=== PATIENT | male | born 1970 | race African-American/Black ===

== ENCOUNTER 2024-02-12 09:16 | Outpatient (CLI) | payer OTHER, SELFPAY ==
--- NOTE | ~2024-02-12 | MR_ITS ---
EXAMINATION: MR knee RT wo con DATE: 02/12/2024 09:49 INDICATION: Right knee pain TECHNIQUE: Magnetic resonance imaging (MRI) of the right knee was performed without intravenous contr ast. Sequences included coronal PD-weighted FSE, coronal PD-weighted FS FSE, sagittal T2-weighted FS E, sagittal PD-weighted FS FSE and axial PD weighted fat saturated FSE. COMPARISON: None. FINDINGS: Osseous/other: 3-4 mm proximal distraction of the avulsion fracture involving the mid to posterior intercondylar edgar nence which extends to involve a small portion of the articular surface at the posterior medial aspec t of the lateral tibial plateau. The fracture fragment includes the footplate of the posterior crucia te ligament as well as the posterior roots of both the medial and lateral menisci. The fracture appea rs to spare the majority if not all of the tibial footplate of the anterior cruciate ligament. No sig nificant associated marrow edema suggesting this is subacute to chronic. There are relatively smooth low signal intensity margins of the fracture which raises concern for nonunion although assessment is more limited than with CT. Normal variant bipartite patella with mild edema and cystic change along the synchondrosis between the patella and the small superolateral accessory apophyseal center. There is a cleft in the articular cartilage overlying the synchondrosis. No pathologic marrow replacing pro cess. Medial compartment: Medial extrusion of the medial meniscal body. Complex tear of the medial meniscus which includes a lo ngitudinal vertical tear plane at the posterior horn and a horizontal tear plane at the meniscal body . There is a small meniscal flap displaced cephalad into the recess along side the anterior weightbea ring medial femoral condyle. The posterior horn appears small suggesting some loss of meniscal tissue . There is partial thickness cartilage loss with mild underlying subarticular edema-like signal mireles e at the posterolateral aspect of the medial tibial plateau. Full-thickness chondral tear overlying t he fracture plane which extends along the articular surface of the medial side of the intercondylar e minence. Additional mild partial-thickness cartilage loss with smooth chondral surface along the ante rior weightbearing medial femoral condyle. Lateral compartment: Lateral meniscus is normal. Articular cartilage is normal aside from the full-thickness tear overlyin g the fracture plane. Patellofemoral compartment: Patellar cartilage is normal aside from the cleft overlying the synchondrosis as previously detailed. There mild chondral surface irregularity along the trochlear groove. Ligaments and tendons: Anterior cruciate ligament appears normal. There is mild increased intrasubstance signal at the dista l aspect of the posterior cruciate ligament which could be seen with partial tear versus magic angle artifact. Dominant thickening and increased signal of the proximal medial collateral ligament without surrounding edema consistent with scarring related to prior high-grade partial if not complete tear. The fibular collateral ligament complex is normal. Mild distal quadriceps tendinopathy with small en thesophyte at its patellar insertion. The patellar tendon is normal. The visualized medial and latera l hamstring tendons as well as the iliotibial band are normal. There is mild feathery muscular edema along the deep margin of the popliteus muscle where it passes over the posterior margin of the tibial fracture fragment. Fluid: Physiologic amount of fluid in the joint space. No loose osteochondral bodies identified. Small Marie 's cyst. IMPRESSION: 1. 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
== END 2024-02-12 09:17 ==
PROVIDERS: PCP Physician Assistant; Visit Provider Physician Assistant
DX: S83.231A Complex tear of medial meniscus, current injury, right knee, initial encounter (principal); X58.XXXA Exposure to other specified factors, initial encounter; M17.11 Unilateral primary osteoarthritis, right knee
CPT/HCPCS: 73721